=== PATIENT | female | born 1950 | race Caucasian/White ===

== ENCOUNTER 2020-05-26 13:27 | Inpatient (IN) ==
[2020-05-26 15:54] LABS: Basophils # 0.1 10*3/uL (0.0-0.2); Basophils % 0.6 % (0.0-0.8); Eosinophils # 0.7 10*3/uL (0.0-0.87); Eosinophils % 5.4 % (0.00-10.9); Hematocrit 33.2 VOL% (35.7-47.0); Hemoglobin 10.8 GM/DL (12.0-16.0); Immature Granulocytes Absolute 0.13 #; Lymphocytes % 22.2 % (21.3-54.2); Mean Corpuscular HGB Conc 32.5 GM/DL (32-36); Mean Corpuscular Volume 91.2 FL (87-102); Mean Platelet Volume 10.8 FL (9.6-12.0); Monocytes % 5.2 % (1.7-12.7); Neutrophils % 65.6 % (38.7-73.9); Platelet Count 225 T/CUMM (130-400); Red Blood Count 3.64 MC/CUMM (3.8-5.5); Red Cell Distribution Width 12.6 % (9.3-17.3); White Blood Count 13.4 T/CUMM (4-12)
[2020-05-26 16:14] LABS: Alanine Aminotransferase 19 U/L (13-56); Albumin 3.1 G/DL (3.4-5.0); Alkaline Phosphatase 98 U/L (45-117); Aspartate Amino Transferase 13 U/L (0-37); Bilirubin,Total < 0.39 MG/DL (0.2-1.0); Blood Urea Nitrogen 48 MG/DL (7-18); Calcium 8.7 MG/DL (8.5-10.1); Estimated Glom Filtration Rate 25 ML/MIN; Glucose 405 MG/DL (74-106); Osmolality,Calculated 291.7 MOS/KG (273-304)
[2020-05-26] MEDS ORDERED: SODIUM BICARBONATE 50 MEQ/50 ML VIAL IV STA (16:27)
[2020-05-26] MEDS ORDERED: CALCIUM CHLORIDE 1,000 MG/10 ML SYRINGE IV STA (16:27)
[2020-05-26] MEDS ORDERED: INSULIN REGULAR 100 UNIT/ML SUBCUT STA (16:27)
[2020-05-26] MEDS ORDERED: DEXTROSE 50% 25 GM/50 ML VIAL IV STA (16:28)
[2020-05-26] MEDS ORDERED: DEXTROSE 50% 25 GM/50 ML VIAL IV PRN (16:57)
[2020-05-26] MEDS ORDERED: DEXTROSE 10% 250 ML BAG IV PRN (16:57)
[2020-05-26] MEDS ORDERED: SODIUM POLYSTYRENE SULFATE 15 GM/60 ML BOTTLE PO STA (16:57)
[2020-05-26] MEDS ORDERED: GLUCAGON 1 MG VIAL IM PRN (16:57)
[2020-05-26] MEDS ORDERED: ONDANSETRON 4 MG/2 ML VIAL IV PRN (16:57)
[2020-05-26] MEDS ORDERED: DEXTROSE 50% 25 GM/50 ML SYRINGE IV ONE (17:07)
[2020-05-26] MEDS ORDERED: traMADol 50 MG TABLET PO PRN (18:21)
[2020-05-26] MEDS ORDERED: PANTOPRAZOLE 40 MG TABLET PO PRN (18:21)
[2020-05-26] MEDS ORDERED: CYCLOBENZAPRINE 10 MG TABLET PO PRN (18:21)
[2020-05-26] MEDS ORDERED: INSULIN ASPART PROTAMINE/ASPART 70/30 100 UNIT/ML SUBCUT SCH (21:00)
[2020-05-26 22:03] LABS: Calcium 10.3 MG/DL (8.5-10.1); Osmolality,Calculated 292.1 MOS/KG (273-304)
[2020-05-26] MEDS: SODIUM BICARB INJ 50 MEQ in SODIUM CHLORIDE 0.45% 1,000 ML IV SCH (22:35)
[2020-05-26] MEDS: ENOXAPARIN 30 MG/0.3 ML SYRINGE SUBCUT SCH (22:37)
[2020-05-26] MEDS: DULoxetine 30 MG CAPSULE PO SCH (22:37)
[2020-05-26] MEDS: PREGABALIN 75 MG CAPSULE PO SCH (22:38)
[2020-05-26] MEDS: ASPIRIN EC 81 MG TABLET PO SCH (22:38)
[2020-05-26] MEDS: ROSUVASTATIN 10 MG TABLET PO SCH (22:38)
[2020-05-26] MEDS: INSULIN REGULAR 100 UNIT/ML SUBCUT SCH (22:38)
[2020-05-27 06:18] LABS: Basophils # 0.1 10*3/uL (0.0-0.2); Basophils % 0.6 % (0.0-0.8); Eosinophils # 0.7 10*3/uL (0.0-0.87); Eosinophils % 6.5 % (0.00-10.9); Hematocrit 32.1 VOL% (35.7-47.0); Hemoglobin 10.2 GM/DL (12.0-16.0); Immature Granulocytes % 1.2 %; Immature Granulocytes Absolute 0.13 #; Lymphocytes # 3.9 10*3/uL (1.4-4.0); Lymphocytes % 36.4 % (21.3-54.2); Mean Corpuscular HGB Conc 31.8 GM/DL (32-36); Mean Corpuscular Volume 91.7 FL (87-102); Mean Platelet Volume 10.9 FL (9.6-12.0); Monocytes % 6.3 % (1.7-12.7); Platelet Count 205 T/CUMM (130-400); Red Cell Distribution Width 12.8 % (9.3-17.3); White Blood Count 10.8 T/CUMM (4-12)
[2020-05-27] MEDS: SODIUM BICARB INJ 50 MEQ in SODIUM CHLORIDE 0.45% 1,000 ML IV SCH (06:21)
[2020-05-27] MEDS: LEVOTHYROXINE 137 MCG TABLET PO SCH (06:22)
[2020-05-27 06:44] LABS: Albumin 2.8 G/DL (3.4-5.0); Bilirubin,Total 0.8 MG/DL (0.2-1.0); Calcium 9.5 MG/DL (8.5-10.1); Osmolality,Calculated 292.8 MOS/KG (273-304); Total Protein 6.3 G/DL (6.4-8.3)
[2020-05-27] MEDS: sitaGLIPtin 25 MG TABLET PO SCH (10:00)
[2020-05-27] MEDS: carvediloL 12.5 MG TABLET PO SCH (10:00)
[2020-05-27] MEDS: CLOPIDOGREL 75 MG TABLET PO SCH (10:00)
[2020-05-27] MEDS: INSULIN REGULAR 100 UNIT/ML SUBCUT SCH ×4 (10:00→22:22)
[2020-05-27] MEDS: PANTOPRAZOLE 40 MG TABLET PO SCH (10:00)
[2020-05-27] MEDS: INSULIN ASPART PROTAMINE/ASPART 70/30 100 UNIT/ML SUBCUT SCH (17:16)
[2020-05-27] MEDS: ENOXAPARIN 30 MG/0.3 ML SYRINGE SUBCUT SCH (21:01)
[2020-05-27] MEDS: ROSUVASTATIN 10 MG TABLET PO SCH (21:04)
[2020-05-27] MEDS: ASPIRIN EC 81 MG TABLET PO SCH (21:05)
[2020-05-27] MEDS: DULoxetine 30 MG CAPSULE PO SCH (21:05)
[2020-05-27] MEDS: PREGABALIN 75 MG CAPSULE PO SCH (21:05)
[2020-05-28] MEDS: LEVOTHYROXINE 137 MCG TABLET PO SCH (05:38)
[2020-05-28 06:30] LABS: Basophils % 0.5 % (0.0-0.8); Eosinophils # 0.6 10*3/uL (0.0-0.87); Eosinophils % 6.7 % (0.00-10.9); Hemoglobin 9.8 GM/DL (12.0-16.0); Immature Granulocytes % 0.9 %; Immature Granulocytes Absolute 0.08 #; Lymphocytes # 3.5 10*3/uL (1.4-4.0); Lymphocytes % 39.4 % (21.3-54.2); Mean Corpuscular HGB Conc 32.7 GM/DL (32-36); Mean Corpuscular Volume 90.1 FL (87-102); Mean Platelet Volume 10.9 FL (9.6-12.0); Monocytes % 6.1 % (1.7-12.7); Neutrophils % 46.4 % (38.7-73.9); Platelet Count 179 T/CUMM (130-400); Red Blood Count 3.33 MC/CUMM (3.8-5.5); Red Cell Distribution Width 12.8 % (9.3-17.3); White Blood Count 8.8 T/CUMM (4-12)
[2020-05-28 06:48] LABS: Calcium 8.9 MG/DL (8.5-10.1); Osmolality,Calculated 291.1 MOS/KG (273-304)
[2020-05-28] MEDS: INSULIN ASPART PROTAMINE/ASPART 70/30 100 UNIT/ML SUBCUT SCH ×2 (08:32→16:21)
[2020-05-28] MEDS: carvediloL 12.5 MG TABLET PO SCH (08:32)
[2020-05-28] MEDS: PANTOPRAZOLE 40 MG TABLET PO SCH (08:32)
[2020-05-28] MEDS: CLOPIDOGREL 75 MG TABLET PO SCH (08:32)
[2020-05-28] MEDS: sitaGLIPtin 25 MG TABLET PO SCH (08:32)
[2020-05-28] MEDS: INSULIN REGULAR 100 UNIT/ML SUBCUT SCH ×3 (08:32→16:21)
[2020-05-28 12:23] VITALS: BP 124/48
== END 2020-05-28 16:38 | disposition home or self-care (01) | DRG 641 ==
LOC: N.ED 13:27 → N.EDINP 13:27 → N.3W 18:37 → N.3E 05-27 17:14
PROVIDERS: ADMIT Internal Medicine; ATTEND Internal Medicine

== ENCOUNTER 2020-06-14 08:27 | Observation (INO) ==
[2020-06-14] MEDS ORDERED: PHENAZOPYRIDINE 95 MG TABLET PO STA (09:15)
[2020-06-14] MEDS ORDERED: SODIUM CHLORIDE 0.9% 500 ML IV STA (09:15)
[2020-06-14 10:01] LABS: Basophils # 0.1 10*3/uL (0.0-0.2); Basophils % 0.4 % (0.0-0.8); Eosinophils # 0.5 10*3/uL (0.0-0.87); Eosinophils % 2.7 % (0.00-10.9); Hematocrit 34.3 VOL% (35.7-47.0); Hemoglobin 11.1 GM/DL (12.0-16.0); Immature Granulocytes % 2.9 %; Immature Granulocytes Absolute 0.49 #; Lymphocytes # 1.3 10*3/uL (1.4-4.0); Lymphocytes % 7.7 % (21.3-54.2); Mean Corpuscular HGB Conc 32.4 GM/DL (32-36); Mean Corpuscular Volume 91.7 FL (87-102); Mean Platelet Volume 10.7 FL (9.6-12.0); Monocytes % 4.1 % (1.7-12.7); NRBC # 0.02 10*3/uL; Neutrophils % 82.2 % (38.7-73.9); Platelet Count 214 T/CUMM (130-400); Red Blood Count 3.74 MC/CUMM (3.8-5.5); Red Cell Distribution Width 13.1 % (9.3-17.3)
[2020-06-14 10:25] LABS: Alanine Aminotransferase 18 U/L (13-56); Albumin 2.8 G/DL (3.4-5.0); Alkaline Phosphatase 98 U/L (45-117); Amylase 37 U/L (25-115); Aspartate Amino Transferase 24 U/L (0-37); Blood Urea Nitrogen 20 MG/DL (7-18); Calcium 7.9 MG/DL (8.5-10.1); Estimated Glom Filtration Rate 47 ML/MIN; Ferritin 120.4 ng/ml (8-252); Glucose 349 MG/DL (74-106); Osmolality,Calculated 280.5 MOS/KG (273-304); Total Protein 6.9 G/DL (6.4-8.3); Troponin I 0.055 NG/ML (0.00-0.045)
[2020-06-14 10:37] LABS: Apearance,Urine CLEAR (Clear); Bacteria,Urine Occasional /HPF (Few); Bilirubin,Urine Negative (Negative); Blood, Urine Moderate mg/dL (Negative); Glucose,Urine (UA) >=500 mg/dL (Negative); Ketones,Urine 80 mg/dL (Negative); Nitrite,Urine Negative (Negative); Protein,Urine 100 MG/DL; RBC,Urine <1 /HPF (0-4); Squamous Epithelial Cell,Urine Occasional /HPF (0-10); Urine Color Yellow (Yellow); Urine Specific Gravity 1.022 (1.001-1.035); Urine Urobilinogen < 2.0 EU/DL (0.2-1.0); WBC,Urine 1 /HPF (0-6)
[2020-06-14] MEDS ORDERED: LEVOFLOXACIN INJ 750 MG in PREMIX 1 EACH IV STA (10:50)
[2020-06-14 11:24] LABS: PT Patient Result 10.3 SECS (9.8-11.9); Partial Thromboplastin Time 25.1 SECS (23.9-33.8)
[2020-06-14] MEDS ORDERED: GLUCAGON 1 MG VIAL IM PRN (11:28)
[2020-06-14] MEDS ORDERED: ONDANSETRON 4 MG/2 ML VIAL IV PRN (11:28)
[2020-06-14] MEDS ORDERED: DEXTROSE 50% 25 GM/50 ML VIAL IV PRN (11:28)
[2020-06-14] MEDS ORDERED: BISACODYL 5 MG TABLET PO PRN (11:28)
[2020-06-14] MEDS ORDERED: amLODIPine 5 MG TABLET PO STA (11:32)
[2020-06-14] MEDS: INSULIN REGULAR 100 UNIT/ML SUBCUT SCH ×4 (14:12→21:51)
[2020-06-14] MEDS: SODIUM CHLORIDE 0.9% 1,000 ML IV SCH (15:32)
[2020-06-14] MEDS: cefTRIAXone 1,000 MG in SYRINGE 1 EACH IV SCH (15:32)
[2020-06-14] MEDS ORDERED: PREGABALIN 75 MG CAPSULE PO SCH (21:00)
[2020-06-14] MEDS ORDERED: ENOXAPARIN 40 MG/0.4 ML SYRINGE SUBCUT SCH (21:00)
[2020-06-14] MEDS ORDERED: ASPIRIN EC 81 MG TABLET PO SCH (21:00)
[2020-06-14] MEDS ORDERED: ZALEPLON 5 MG CAPSULE PO PRN (23:05)
[2020-06-15] MEDS: SODIUM CHLORIDE 0.9% 1,000 ML IV SCH ×2 (02:16→09:47)
[2020-06-15] MEDS ORDERED: LEVOTHYROXINE 137 MCG TABLET PO SCH (06:30)
[2020-06-15 06:31] LABS: Basophils # 0.1 10*3/uL (0.0-0.2); Basophils % 0.4 % (0.0-0.8); Eosinophils # 0.6 10*3/uL (0.0-0.87); Eosinophils % 3.1 % (0.00-10.9); Hematocrit 32.2 VOL% (35.7-47.0); Hemoglobin 10.5 GM/DL (12.0-16.0); Immature Granulocytes % 1.9 %; Immature Granulocytes Absolute 0.35 #; Lymphocytes % 11.2 % (21.3-54.2); Mean Corpuscular HGB Conc 32.6 GM/DL (32-36); Mean Corpuscular Volume 90.2 FL (87-102); Mean Platelet Volume 11.3 FL (9.6-12.0); Monocytes % 3.4 % (1.7-12.7); Platelet Count 186 T/CUMM (130-400); Red Blood Count 3.57 MC/CUMM (3.8-5.5); Red Cell Distribution Width 12.9 % (9.3-17.3); White Blood Count 18.1 T/CUMM (4-12)
[2020-06-15 06:35] LABS: Calcium 7.4 MG/DL (8.5-10.1); Osmolality,Calculated 278.4 MOS/KG (273-304); Thyroid Stimulating Hormone 0.029 uIU/ml (0.358-3.74)
[2020-06-15 06:39] LABS: Folate 21.5 NG/ML (5.4-24.0)
[2020-06-15] MEDS: INSULIN REGULAR 100 UNIT/ML SUBCUT SCH (07:27)
[2020-06-15 08:40] VITALS: BP 156/66
[2020-06-15] MEDS ORDERED: amLODIPine 5 MG TABLET PO SCH (09:00)
[2020-06-15] MEDS ORDERED: CLOPIDOGREL 75 MG TABLET PO SCH (09:00)
[2020-06-15] MEDS ORDERED: predniSONE 5 MG TABLET PO SCH (09:00)
[2020-06-15] MEDS ORDERED: carvediloL 12.5 MG TABLET PO SCH (09:00)
[2020-06-15] MEDS: cefTRIAXone 1,000 MG in SYRINGE 1 EACH IV SCH (09:41)
== END 2020-06-15 10:20 | disposition home or self-care (01) ==
LOC: EDBD → EDUNIT# → N.ED 08:27 → N.EDINP 08:27 → N.TELEN 13:32
PROVIDERS: ADMIT Internal Medicine; ATTEND Internal Medicine

== ENCOUNTER 2020-06-16 12:37 | Observation (INO) ==
[2020-06-16] MEDS ORDERED: SODIUM CHLORIDE 0.9% 2,000 ML IV STA (12:50)
[2020-06-16] MEDS ORDERED: LEVOFLOXACIN INJ 500 MG in PREMIX 1 EACH IV STA (12:52)
[2020-06-16 13:33] LABS: Basophils # 0.1 10*3/uL (0.0-0.2); Basophils % 0.2 % (0.0-0.8); Eosinophils # 0.5 10*3/uL (0.0-0.87); Eosinophils % 2.3 % (0.00-10.9); Hematocrit 31.8 VOL% (35.7-47.0); Hemoglobin 10.6 GM/DL (12.0-16.0); Immature Granulocytes % 3.5 %; Immature Granulocytes Absolute 0.79 #; Lymphocytes # 0.3 10*3/uL (1.4-4.0); Lymphocytes % 1.4 % (21.3-54.2); Mean Corpuscular HGB Conc 33.3 GM/DL (32-36); Mean Corpuscular Volume 88.8 FL (87-102); Mean Platelet Volume 10.8 FL (9.6-12.0); Monocytes % 0.8 % (1.7-12.7); Neutrophils % 91.8 % (38.7-73.9); Platelet Count 200 T/CUMM (130-400); Red Blood Count 3.58 MC/CUMM (3.8-5.5); Red Cell Distribution Width 12.9 % (9.3-17.3); White Blood Count 22.4 T/CUMM (4-12)
[2020-06-16 13:46] LABS: PT Patient Result 10.3 SECS (9.8-11.9)
[2020-06-16 14:03] LABS: Alanine Aminotransferase 27 U/L (13-56); Albumin 2.5 G/DL (3.4-5.0); Alkaline Phosphatase 99 U/L (45-117); Aspartate Amino Transferase 29 U/L (0-37); Bilirubin,Total < 0.39 MG/DL (0.2-1.0); Blood Urea Nitrogen 20 MG/DL (7-18); Calcium 7.5 MG/DL (8.5-10.1); Estimated Glom Filtration Rate 48 ML/MIN; Glucose 243 MG/DL (74-106); Osmolality,Calculated 270.8 MOS/KG (273-304); Total Protein 6.7 G/DL (6.4-8.3)
[2020-06-16 14:34] LABS: Apearance,Urine CLOUDY (Clear); Bilirubin,Urine Negative (Negative); Blood, Urine Negative (Negative); Glucose,Urine (UA) 50 mg/dL (Negative); Ketones,Urine 5 mg/dL (Negative); Nitrite,Urine Negative (Negative); Protein,Urine 100 MG/DL; RBC,Urine 4 /HPF (0-4); Red Blood Cell Casts,Urine 42 /LPF (<1); Squamous Epithelial Cell,Urine Occasional /HPF (0-10); Urine Color Amber (Yellow); Urine Specific Gravity 1.026 (1.001-1.035); Urine Urobilinogen < 2.0 EU/DL (0.2-1.0); WBC,Urine 25 /HPF (0-6)
[2020-06-16] MEDS ORDERED: GLUCAGON 1 MG VIAL IM PRN ×2 (14:57)
[2020-06-16] MEDS ORDERED: ONDANSETRON 4 MG/2 ML VIAL IV PRN (14:57)
[2020-06-16] MEDS ORDERED: DEXTROSE 50% 25 GM/50 ML VIAL IV PRN ×2 (14:57)
[2020-06-16] MEDS ORDERED: ACETAMINOPHEN 325 MG TABLET PO PRN (14:57)
[2020-06-16 15:43] LABS: Band Neutrophils 4 % (0-10); Eosinophils 2 % (0-10); Lymphocytes 1 % (20-55); Segmented Neutrophils 89 % (50-85); Total Cells Counted 100
[2020-06-16 15:44] LABS: Anisocytosis Slight; Platelet Estimate Adequate; Polychromasia Slight
[2020-06-16] MEDS: ENOXAPARIN 40 MG/0.4 ML SYRINGE SUBCUT SCH (21:49)
[2020-06-16] MEDS: INSULIN LISPRO 100 UNIT/ML SUBCUT SCH (21:59)
[2020-06-17] MEDS: ZALEPLON 5 MG CAPSULE PO PRN ×2 (01:02→23:41)
[2020-06-17] MEDS: SODIUM CHLORIDE 0.9% 1,000 ML IV SCH (05:51)
[2020-06-17 05:56] LABS: Basophils # 0.1 10*3/uL (0.0-0.2); Basophils % 0.4 % (0.0-0.8); Eosinophils # 0.3 10*3/uL (0.0-0.87); Eosinophils % 2.4 % (0.00-10.9); Hematocrit 29.4 VOL% (35.7-47.0); Hemoglobin 9.9 GM/DL (12.0-16.0); Immature Granulocytes Absolute 0.25 #; Lymphocytes # 0.9 10*3/uL (1.4-4.0); Lymphocytes % 7.1 % (21.3-54.2); Mean Corpuscular HGB Conc 33.7 GM/DL (32-36); Mean Platelet Volume 11.2 FL (9.6-12.0); Monocytes % 2.6 % (1.7-12.7); Neutrophils % 85.5 % (38.7-73.9); Platelet Count 187 T/CUMM (130-400); Red Blood Count 3.38 MC/CUMM (3.8-5.5); Red Cell Distribution Width 13.1 % (9.3-17.3); White Blood Count 12.8 T/CUMM (4-12)
[2020-06-17 06:23] LABS: Band Neutrophils 12 % (0-10); Eosinophils 3 % (0-10); Lymphocytes 6 % (20-55); Segmented Neutrophils 79 % (50-85); Total Cells Counted 100
[2020-06-17 06:24] LABS: Calcium 6.8 MG/DL (8.5-10.1); Hypochromasia 1+; Microcytosis Slight; Osmolality,Calculated 278.2 MOS/KG (273-304)
[2020-06-17 06:25] LABS: Platelet Estimate Adequate; Polychromasia Slight
[2020-06-17] MEDS: INSULIN LISPRO 100 UNIT/ML SUBCUT SCH ×4 (08:03→20:42)
[2020-06-17] MEDS: PANTOPRAZOLE 40 MG TABLET PO SCH (08:03)
[2020-06-17] MEDS: LEVOFLOXACIN INJ 500 MG in PREMIX 1 EACH IV SCH (10:46)
[2020-06-17] MEDS ORDERED: SALIVA SUBSTITUTE SPRAY 60 ML CAN SWISH/SPIT PRN (11:52)
[2020-06-17] MEDS: ENOXAPARIN 40 MG/0.4 ML SYRINGE SUBCUT SCH (20:42)
[2020-06-18 06:14] LABS: Basophils % 0.3 % (0.0-0.8); Eosinophils # 0.7 10*3/uL (0.0-0.87); Eosinophils % 7.5 % (0.00-10.9); Hematocrit 26.1 VOL% (35.7-47.0); Hemoglobin 8.4 GM/DL (12.0-16.0); Immature Granulocytes % 2.5 %; Immature Granulocytes Absolute 0.24 #; Lymphocytes # 1.7 10*3/uL (1.4-4.0); Lymphocytes % 17.9 % (21.3-54.2); Mean Corpuscular HGB Conc 32.2 GM/DL (32-36); Mean Corpuscular Volume 89.1 FL (87-102); Mean Platelet Volume 11.2 FL (9.6-12.0); Monocytes % 2.8 % (1.7-12.7); Platelet Count 192 T/CUMM (130-400); Red Blood Count 2.93 MC/CUMM (3.8-5.5); Red Cell Distribution Width 13.2 % (9.3-17.3); White Blood Count 9.6 T/CUMM (4-12)
[2020-06-18 06:46] LABS: Calcium 7.2 MG/DL (8.5-10.1); Osmolality,Calculated 285.8 MOS/KG (273-304)
[2020-06-18] MEDS: PANTOPRAZOLE 40 MG TABLET PO SCH (09:23)
[2020-06-18] MEDS: SODIUM CHLORIDE 0.9% 1,000 ML IV SCH (09:24)
[2020-06-18] MEDS: LEVOFLOXACIN INJ 500 MG in PREMIX 1 EACH IV SCH (09:24)
[2020-06-18] MEDS: INSULIN LISPRO 100 UNIT/ML SUBCUT SCH ×4 (09:24→21:08)
[2020-06-19 05:16] LABS: Hematocrit 26.6 VOL% (35.7-47.0); Hemoglobin 8.8 GM/DL (12.0-16.0); Red Blood Count 3.05 MC/CUMM (3.8-5.5); White Blood Count 10.8 T/CUMM (4-12)
[2020-06-19 05:17] LABS: Basophils # 0.1 10*3/uL (0.0-0.2); Basophils % 0.7 % (0.0-0.8); Eosinophils # 0.9 10*3/uL (0.0-0.87); Eosinophils % 8.1 % (0.00-10.9); Immature Granulocytes % 3.5 %; Immature Granulocytes Absolute 0.38 #; Lymphocytes # 2.2 10*3/uL (1.4-4.0); Lymphocytes % 20.2 % (21.3-54.2); Mean Corpuscular HGB Conc 33.1 GM/DL (32-36); Mean Corpuscular Volume 87.2 FL (87-102); Monocytes % 3.4 % (1.7-12.7); NRBC # 0.02 10*3/uL; Neutrophils % 64.1 % (38.7-73.9); Platelet Count 196 T/CUMM (130-400); Red Cell Distribution Width 13.4 % (9.3-17.3)
[2020-06-19 05:19] LABS: Calcium 7.5 MG/DL (8.5-10.1); Osmolality,Calculated 285.5 MOS/KG (273-304)
[2020-06-19 08:09] LABS: % Iron Saturation 17.9 % (18-50)
[2020-06-19] MEDS: LEVOFLOXACIN INJ 500 MG in PREMIX 1 EACH IV SCH (10:20)
[2020-06-19] MEDS: INSULIN LISPRO 100 UNIT/ML SUBCUT SCH ×2 (10:20→12:20)
[2020-06-19] MEDS: PANTOPRAZOLE 40 MG TABLET PO SCH (10:21)
[2020-06-19 10:44] VITALS: BP 144/48
== END 2020-06-19 13:45 | disposition home or self-care (01) ==
LOC: EDBD → EDUNIT# → N.ED 12:37 → N.EDINP 12:37 → N.3E 15:56
PROVIDERS: ADMIT Internal Medicine Geriatric Medicine; ATTEND Internal Medicine Geriatric Medicine

== ENCOUNTER 2020-06-20 07:18 | Inpatient (IN) ==
[2020-06-20] MEDS ORDERED: FUROSEMIDE 40 MG/4 ML VIAL IV STA (07:55)
[2020-06-20 08:02] LABS: Basophils # 0.2 10*3/uL (0.0-0.2); Basophils % 0.5 % (0.0-0.8); Eosinophils # 0.8 10*3/uL (0.0-0.87); Eosinophils % 2.3 % (0.00-10.9); Hematocrit 32.9 VOL% (35.7-47.0); Hemoglobin 10.7 GM/DL (12.0-16.0); Immature Granulocytes % 3.8 %; Immature Granulocytes Absolute 1.25 #; Lymphocytes # 0.7 10*3/uL (1.4-4.0); Mean Corpuscular HGB Conc 32.5 GM/DL (32-36); Mean Corpuscular Volume 89.2 FL (87-102); Mean Platelet Volume 10.7 FL (9.6-12.0); Monocytes % 2.4 % (1.7-12.7); Platelet Count 254 T/CUMM (130-400); Red Blood Count 3.69 MC/CUMM (3.8-5.5); Red Cell Distribution Width 13.6 % (9.3-17.3); White Blood Count 33.3 T/CUMM (4-12)
[2020-06-20 08:19] LABS: Albumin 2.3 G/DL (3.4-5.0); Bilirubin,Total 0.4 MG/DL (0.2-1.0); Calcium 7.8 MG/DL (8.5-10.1); Osmolality,Calculated 278.2 MOS/KG (273-304); Total Protein 5.5 G/DL (6.4-8.3)
[2020-06-20 08:41] LABS: Band Neutrophils 37 % (0-10); Eosinophils 3 % (0-10); Lymphocytes 3 % (20-55); Metamyelocytes 3 %; Nucleated Red Blood Cells 1 (0-5); Platelet Estimate Normal; Segmented Neutrophils 48 % (50-85); Total Cells Counted 100
[2020-06-20] MEDS ORDERED: LEVOFLOXACIN INJ 500 MG in PREMIX 1 EACH IV STA (08:41)
[2020-06-20 08:42] LABS: Anisocytosis 2+; Polychromasia Slight
[2020-06-20] MEDS ORDERED: LEVOFLOXACIN INJ 750 MG in PREMIX 1 EACH IV STA (08:43)
[2020-06-20 09:14] LABS: Apearance,Urine CLOUDY (Clear); Bilirubin,Urine Negative (Negative); Blood, Urine Small mg/dL (Negative); Glucose,Urine (UA) 50 mg/dL (Negative); Ketones,Urine Negative (Negative); Nitrite,Urine Negative (Negative); Protein,Urine 100 MG/DL; Urine Specific Gravity 1.017 (1.001-1.035); Urine Urobilinogen < 2.0 EU/DL (0.2-1.0)
[2020-06-20 09:16] LABS: Urine Color Amber (Yellow)
[2020-06-20 09:52] LABS: ABG Base Excess -5.3 MMOL/L (-2.5-2.5); ABG HCO3 17.5 MMOL/L (20-26); ABG Oxygen Saturation 97.6 % (95-100); ABG PCO2 25.7 MM HG (35-48); ABG TCO2 18.3 MMOL/L (23-27)
[2020-06-20] MEDS ORDERED: GLUCAGON 1 MG VIAL IM PRN ×2 (10:39)
[2020-06-20] MEDS ORDERED: ACETAMINOPHEN 325 MG TABLET PO PRN (10:39)
[2020-06-20] MEDS ORDERED: ONDANSETRON 4 MG/2 ML VIAL IV PRN (10:39)
[2020-06-20] MEDS ORDERED: DEXTROSE 50% 25 GM/50 ML VIAL IV PRN ×2 (10:39)
[2020-06-20] MEDS ORDERED: ENOXAPARIN 40 MG/0.4 ML SYRINGE ONE (11:09)
[2020-06-20] MEDS: INSULIN LISPRO 100 UNIT/ML SUBCUT SCH ×3 (11:27→21:28)
[2020-06-20] MEDS ORDERED: MAGNESIUM SULF RIDER 2 GM in PREMIX 1 EACH IV PRN (18:43)
[2020-06-20] MEDS ORDERED: MAGNESIUM SULF RIDER 4 GM in PREMIX 1 EACH IV PRN (18:43)
[2020-06-20] MEDS: ENOXAPARIN 40 MG/0.4 ML SYRINGE SUBCUT SCH (21:28)
[2020-06-21 06:39] LABS: Basophils # 0.1 10*3/uL (0.0-0.2); Basophils % 0.4 % (0.0-0.8); Eosinophils # 1.3 10*3/uL (0.0-0.87); Eosinophils % 5.4 % (0.00-10.9); Hematocrit 28.2 VOL% (35.7-47.0); Hemoglobin 9.3 GM/DL (12.0-16.0); Immature Granulocytes % 3.4 %; Immature Granulocytes Absolute 0.83 #; Lymphocytes # 2.7 10*3/uL (1.4-4.0); Mean Corpuscular Volume 87.9 FL (87-102); Mean Platelet Volume 10.8 FL (9.6-12.0); Monocytes % 3.4 % (1.7-12.7); NRBC # 0.02 10*3/uL; Neutrophils % 76.4 % (38.7-73.9); Platelet Count 221 T/CUMM (130-400); Red Blood Count 3.21 MC/CUMM (3.8-5.5); Red Cell Distribution Width 13.8 % (9.3-17.3); White Blood Count 24.4 T/CUMM (4-12)
[2020-06-21 07:05] LABS: Calcium 7.5 MG/DL (8.5-10.1); Osmolality,Calculated 282.4 MOS/KG (273-304); Risk Ratio 8.36; VLDL CHOLESTEROL 58.2 MG/DL
[2020-06-21 07:50] LABS: Band Neutrophils 3 % (0-10); Eosinophils 5 % (0-10); Hypochromasia Slight; Lymphocytes 5 % (20-55); Nucleated Red Blood Cells 1 (0-5); Platelet Estimate Adequate; Segmented Neutrophils 84 % (50-85); Total Cells Counted 100
[2020-06-21] MEDS: INSULIN LISPRO 100 UNIT/ML SUBCUT SCH ×4 (08:17→23:43)
[2020-06-21] MEDS: PANTOPRAZOLE 40 MG TABLET PO SCH (08:18)
[2020-06-21] MEDS ORDERED: traMADol 50 MG TABLET PO PRN (11:12)
[2020-06-21] MEDS ORDERED: CYCLOBENZAPRINE 10 MG TABLET PO PRN (11:12)
[2020-06-21] MEDS ORDERED: SALIVA SUBSTITUTE SPRAY 60 ML CAN SWISH/SPIT PRN (11:12)
[2020-06-21] MEDS ORDERED: DENOSUMAB 60 MG/ML SYRINGE SUBCUT SCH (11:30)
[2020-06-21] MEDS ORDERED: ZALEPLON 5 MG CAPSULE PO PRN (15:09)
[2020-06-21] MEDS ORDERED: YEAST PO SCH (21:00)
[2020-06-21] MEDS: ASPIRIN EC 81 MG TABLET PO SCH (22:06)
[2020-06-21] MEDS: DULoxetine 30 MG CAPSULE PO SCH (22:06)
[2020-06-21] MEDS: PREGABALIN 75 MG CAPSULE PO SCH (22:06)
[2020-06-21] MEDS: ROSUVASTATIN 10 MG TABLET PO SCH (22:07)
[2020-06-21] MEDS: ENOXAPARIN 40 MG/0.4 ML SYRINGE SUBCUT SCH (22:07)
[2020-06-22 06:52] LABS: Basophils # 0.1 10*3/uL (0.0-0.2); Basophils % 0.4 % (0.0-0.8); Eosinophils # 1.6 10*3/uL (0.0-0.87); Eosinophils % 8.7 % (0.00-10.9); Hemoglobin 8.1 GM/DL (12.0-16.0); Immature Granulocytes % 5.7 %; Immature Granulocytes Absolute 1.04 #; Lymphocytes # 3.8 10*3/uL (1.4-4.0); Lymphocytes % 20.8 % (21.3-54.2); Mean Corpuscular HGB Conc 32.4 GM/DL (32-36); Mean Corpuscular Volume 89.9 FL (87-102); Mean Platelet Volume 10.6 FL (9.6-12.0); Monocytes % 4.1 % (1.7-12.7); NRBC # 0.02 10*3/uL; Neutrophils % 60.3 % (38.7-73.9); Platelet Count 252 T/CUMM (130-400); Red Blood Count 2.78 MC/CUMM (3.8-5.5); Red Cell Distribution Width 13.9 % (9.3-17.3); White Blood Count 18.4 T/CUMM (4-12)
[2020-06-22 07:26] LABS: Band Neutrophils 1 % (0-10); Eosinophils 12 % (0-10); Hypochromasia 1+; Lymphocytes 19 % (20-55); Platelet Estimate Adequate; Segmented Neutrophils 64 % (50-85); Total Cells Counted 100
[2020-06-22 07:27] LABS: Calcium 7.4 MG/DL (8.5-10.1); Osmolality,Calculated 284.2 MOS/KG (273-304)
[2020-06-22] MEDS ORDERED: SEA KELP PO SCH (09:00)
[2020-06-22] MEDS ORDERED: [UNRECOGNIZED DRUG - OTHER] PO SCH (09:00)
[2020-06-22] MEDS ORDERED: CALCIUM CARB MAG OXIDE ZINC OX PO SCH (09:00)
[2020-06-22] MEDS ORDERED: FORSKOLIN PO SCH (09:00)
[2020-06-22] MEDS ORDERED: LEVOFLOXACIN INJ 750 MG in PREMIX 1 EACH IV SCH (09:00)
[2020-06-22] MEDS ORDERED: [UNRECOGNIZED DRUG - MIXTURE] PO SCH (09:00)
[2020-06-22] MEDS ORDERED: ESTROGEN BALANCE PO SCH (09:00)
[2020-06-22] MEDS: INSULIN LISPRO 100 UNIT/ML SUBCUT SCH ×4 (09:11→20:52)
[2020-06-22] MEDS: amLODIPine 5 MG TABLET PO SCH (09:12)
[2020-06-22] MEDS: CLOPIDOGREL 75 MG TABLET PO SCH (09:12)
[2020-06-22] MEDS: predniSONE 5 MG TABLET PO SCH (09:12)
[2020-06-22] MEDS: carvediloL 12.5 MG TABLET PO SCH (09:12)
[2020-06-22] MEDS: PANTOPRAZOLE 40 MG TABLET PO SCH (09:12)
[2020-06-22] MEDS: PREGABALIN 75 MG CAPSULE PO SCH (20:51)
[2020-06-22] MEDS: ROSUVASTATIN 10 MG TABLET PO SCH (20:51)
[2020-06-22] MEDS: ASPIRIN EC 81 MG TABLET PO SCH (20:52)
[2020-06-22] MEDS: DULoxetine 30 MG CAPSULE PO SCH (20:52)
[2020-06-22] MEDS: ENOXAPARIN 40 MG/0.4 ML SYRINGE SUBCUT SCH (20:53)
[2020-06-23 06:28] LABS: Basophils # 0.1 10*3/uL (0.0-0.2); Basophils % 0.7 % (0.0-0.8); Eosinophils # 0.9 10*3/uL (0.0-0.87); Eosinophils % 6.7 % (0.00-10.9); Immature Granulocytes % 8.9 %; Immature Granulocytes Absolute 1.15 #; Lymphocytes # 3.1 10*3/uL (1.4-4.0); Lymphocytes % 24.1 % (21.3-54.2); Mean Corpuscular Volume 88.7 FL (87-102); Mean Platelet Volume 10.8 FL (9.6-12.0); Monocytes % 3.6 % (1.7-12.7); NRBC # 0.03 10*3/uL; Platelet Count 254 T/CUMM (130-400); Red Blood Count 2.82 MC/CUMM (3.8-5.5); Red Cell Distribution Width 13.7 % (9.3-17.3)
[2020-06-23 06:37] LABS: Calcium 7.5 MG/DL (8.5-10.1); Osmolality,Calculated 279.5 MOS/KG (273-304)
[2020-06-23 06:38] LABS: Ferritin 137.7 ng/ml (8-252)
[2020-06-23] MEDS: INSULIN LISPRO 100 UNIT/ML SUBCUT SCH ×2 (08:24→12:02)
[2020-06-23] MEDS: amLODIPine 5 MG TABLET PO SCH (08:24)
[2020-06-23] MEDS: PANTOPRAZOLE 40 MG TABLET PO SCH (08:25)
[2020-06-23] MEDS: predniSONE 5 MG TABLET PO SCH (08:25)
[2020-06-23] MEDS: CLOPIDOGREL 75 MG TABLET PO SCH (08:25)
[2020-06-23] MEDS: carvediloL 12.5 MG TABLET PO SCH (08:25)
[2020-06-23 09:18] LABS: Band Neutrophils 3 % (0-10); Eosinophils 9 % (0-10); Lymphocytes 30 % (20-55); Metamyelocytes 3 %; Myelocytes 3 %; Segmented Neutrophils 49 % (50-85); Total Cells Counted 100
[2020-06-23 09:19] LABS: Hypochromasia 1+; Microcytosis 1+
[2020-06-23 09:20] LABS: Platelet Estimate Normal
[2020-06-23] MEDS ORDERED: PHENOL 1.4% THROAT SPRAY 177 ML BOTTLE PO PRN (11:26)
[2020-06-23 11:53] VITALS: BP 125/68
== END 2020-06-23 16:05 | disposition home health service (06) | DRG 194 ==
LOC: N.ED 07:18 → N.EDINP 10:39 → N.3E 13:45 → N.2E 16:13
PROVIDERS: ADMIT Internal Medicine; ATTEND Internal Medicine

== ENCOUNTER 2020-07-25 16:13 | Inpatient (IN) ==
[2020-07-25] MEDS ORDERED: SODIUM CHLORIDE 0.9% 1,000 ML IV STA ×2 (16:45→18:43)
[2020-07-25 17:20] LABS: Basophils # 0.1 10*3/uL (0.0-0.2); Basophils % 0.3 % (0.0-0.8); Eosinophils # 0.2 10*3/uL (0.0-0.87); Eosinophils % 0.6 % (0.00-10.9); Hematocrit 35.7 VOL% (35.7-47.0); Hemoglobin 11.6 GM/DL (12.0-16.0); Immature Granulocytes % 2.8 %; Immature Granulocytes Absolute 1.11 #; Lymphocytes # 0.7 10*3/uL (1.4-4.0); Lymphocytes % 1.8 % (21.3-54.2); Mean Corpuscular HGB Conc 32.5 GM/DL (32-36); Mean Corpuscular Volume 87.3 FL (87-102); Mean Platelet Volume 10.6 FL (9.6-12.0); Monocytes % 1.6 % (1.7-12.7); Neutrophils % 92.9 % (38.7-73.9); Platelet Count 328 T/CUMM (130-400); Red Blood Count 4.09 MC/CUMM (3.8-5.5); Red Cell Distribution Width 13.1 % (9.3-17.3)
[2020-07-25 17:30] LABS: PT Patient Result 10.5 SECS (9.8-11.9)
[2020-07-25 17:35] LABS: Alanine Aminotransferase 14 U/L (13-56); Albumin 2.8 G/DL (3.4-5.0); Alkaline Phosphatase 119 U/L (45-117); Aspartate Amino Transferase 13 U/L (0-37); Bilirubin,Total < 0.39 MG/DL (0.2-1.0); Blood Urea Nitrogen 23 MG/DL (7-18); Calcium 9.5 MG/DL (8.5-10.1); Estimated Glom Filtration Rate 32 ML/MIN; Glucose 98 MG/DL (74-106); Osmolality,Calculated 276.8 MOS/KG (273-304); Total Protein 7.2 G/DL (6.4-8.3)
[2020-07-25 17:40] LABS: Troponin I 0.055 NG/ML (0.00-0.045)
[2020-07-25 17:42] LABS: Amorphous Crystals,Urine Occasional /HPF (Few); Apearance,Urine Slightly Hazy (Clear); Bacteria,Urine Many /HPF (Few); Bilirubin,Urine Negative (Negative); Blood, Urine Negative (Negative); Glucose,Urine (UA) 50 mg/dL (Negative); Ketones,Urine Negative (Negative); Mucus,Urine Occasional /LPF (Occasional); Nitrite,Urine Negative (Negative); Protein,Urine 30 MG/DL; RBC,Urine 3 /HPF (0-4); Squamous Epithelial Cell,Urine Occasional /HPF (0-10); Urine Color Yellow (Yellow); Urine Specific Gravity 1.013 (1.001-1.035); Urine Urobilinogen < 2.0 EU/DL (0.2-1.0); WBC,Urine 17 /HPF (0-6)
[2020-07-25 18:03] LABS: Band Neutrophils 4 % (0-10); Hypochromasia 1+; Lymphocytes 1 % (20-55); Microcytosis Slight; Myelocytes 1 %; Segmented Neutrophils 91 % (50-85); Total Cells Counted 100
[2020-07-25 18:04] LABS: Toxic Granulation 1+
[2020-07-25 18:05] LABS: Platelet Estimate Normal
[2020-07-25] MEDS ORDERED: VANCOMYCIN INJ 1,000 MG in SODIUM CHLORIDE 0.9% 250 ML IV STA (18:25)
[2020-07-25] MEDS ORDERED: LEVOFLOXACIN INJ 750 MG in PREMIX 1 EACH IV STA (18:25)
[2020-07-25] MEDS ORDERED: ONDANSETRON 4 MG/2 ML VIAL IV PRN (20:18)
[2020-07-25] MEDS ORDERED: DEXTROSE 50% 25 GM/50 ML VIAL IV PRN (20:18)
[2020-07-25] MEDS ORDERED: GLUCAGON 1 MG VIAL IM PRN (20:18)
[2020-07-25] MEDS ORDERED: SALIVA SUBSTITUTE SPRAY 60 ML CAN SWISH/SPIT PRN (20:24)
[2020-07-25] MEDS ORDERED: CYCLOBENZAPRINE 10 MG TABLET PO PRN (20:24)
[2020-07-25] MEDS ORDERED: NON-FORMULARY MEDICATION (Albuterol Sulfate 2 PUFF) INH PRN (20:24)
[2020-07-25] MEDS: INSULIN REGULAR 100 UNIT/ML SUBCUT SCH (21:16)
[2020-07-25] MEDS: ENOXAPARIN 30 MG/0.3 ML SYRINGE SUBCUT SCH (21:48)
[2020-07-25] MEDS: DULoxetine 30 MG CAPSULE PO SCH (22:50)
[2020-07-25] MEDS: SODIUM CHLORIDE 0.9% 1,000 ML IV SCH (22:50)
[2020-07-25] MEDS: ASPIRIN EC 81 MG TABLET PO SCH (22:50)
[2020-07-25] MEDS: ASCORBIC ACID 500 MG TABLET PO SCH (23:00)
[2020-07-25] MEDS: PREGABALIN 75 MG CAPSULE PO SCH (23:00)
[2020-07-25] MEDS: traMADol 50 MG TABLET PO PRN (23:00)
[2020-07-25] MEDS: ROSUVASTATIN 10 MG TABLET PO SCH (23:00)
[2020-07-25] MEDS: MEROPENEM 500 MG in SODIUM CHLORIDE 0.9% 100 ML IV SCH (23:07)
[2020-07-26] MEDS: MEROPENEM 500 MG in SODIUM CHLORIDE 0.9% 100 ML IV SCH ×3 (05:05→20:42)
[2020-07-26] MEDS: LEVOTHYROXINE 137 MCG TABLET PO SCH (05:05)
[2020-07-26] MEDS ORDERED: ACETAMINOPHEN 325 MG TABLET PO PRN (05:09)
[2020-07-26 05:59] LABS: Basophils # 0.1 10*3/uL (0.0-0.2); Basophils % 0.2 % (0.0-0.8); Eosinophils # 0.4 10*3/uL (0.0-0.87); Eosinophils % 1.6 % (0.00-10.9); Hematocrit 33.3 VOL% (35.7-47.0); Hemoglobin 10.4 GM/DL (12.0-16.0); Immature Granulocytes Absolute 0.25 #; Lymphocytes # 1.3 10*3/uL (1.4-4.0); Lymphocytes % 5.4 % (21.3-54.2); Mean Corpuscular HGB Conc 31.2 GM/DL (32-36); Mean Corpuscular Volume 91.2 FL (87-102); Mean Platelet Volume 10.4 FL (9.6-12.0); Monocytes % 1.5 % (1.7-12.7); Neutrophils % 90.3 % (38.7-73.9); Platelet Count 298 T/CUMM (130-400); Red Blood Count 3.65 MC/CUMM (3.8-5.5); Red Cell Distribution Width 13.1 % (9.3-17.3); White Blood Count 24.3 T/CUMM (4-12)
[2020-07-26 06:24] LABS: Albumin 2.4 G/DL (3.4-5.0); Bilirubin,Total 0.4 MG/DL (0.2-1.0); Calcium 8.1 MG/DL (8.5-10.1); Osmolality,Calculated 280.7 MOS/KG (273-304); Total Protein 6.6 G/DL (6.4-8.3)
[2020-07-26 06:27] LABS: Eosinophils 2 % (0-10); Hypochromasia Slight; Lymphocytes 4 % (20-55); Microcytosis Slight; Platelet Estimate Adequate; Segmented Neutrophils 92 % (50-85); Total Cells Counted 100
[2020-07-26] MEDS: INSULIN REGULAR 100 UNIT/ML SUBCUT SCH ×4 (08:48→20:44)
[2020-07-26] MEDS: PANTOPRAZOLE 40 MG TABLET PO SCH (08:48)
[2020-07-26] MEDS: CLOPIDOGREL 75 MG TABLET PO SCH (08:48)
[2020-07-26] MEDS: predniSONE 5 MG TABLET PO SCH (08:48)
[2020-07-26] MEDS: ASCORBIC ACID 500 MG TABLET PO SCH ×2 (08:48→20:43)
[2020-07-26] MEDS ORDERED: ZINC SULFATE 220 MG CAPSULE PO SCH (09:00)
[2020-07-26] MEDS: SODIUM CHLORIDE 0.9% 1,000 ML IV SCH (15:34)
[2020-07-26] MEDS: ENOXAPARIN 30 MG/0.3 ML SYRINGE SUBCUT SCH (20:43)
[2020-07-26] MEDS: PREGABALIN 75 MG CAPSULE PO SCH (20:43)
[2020-07-26] MEDS: DULoxetine 30 MG CAPSULE PO SCH (20:43)
[2020-07-26] MEDS: traMADol 50 MG TABLET PO PRN (20:44)
[2020-07-26] MEDS: ASPIRIN EC 81 MG TABLET PO SCH (20:44)
[2020-07-26] MEDS: ROSUVASTATIN 10 MG TABLET PO SCH (20:44)
[2020-07-27] MEDS: SODIUM CHLORIDE 0.9% 1,000 ML IV SCH (04:20)
[2020-07-27] MEDS: MEROPENEM 500 MG in SODIUM CHLORIDE 0.9% 100 ML IV SCH (05:34)
[2020-07-27] MEDS: LEVOTHYROXINE 137 MCG TABLET PO SCH (05:35)
[2020-07-27 05:38] LABS: Basophils % 0.2 % (0.0-0.8); Eosinophils # 0.4 10*3/uL (0.0-0.87); Eosinophils % 3.3 % (0.00-10.9); Hematocrit 29.1 VOL% (35.7-47.0); Hemoglobin 8.9 GM/DL (12.0-16.0); Immature Granulocytes % 1.4 %; Immature Granulocytes Absolute 0.18 #; Lymphocytes # 2.1 10*3/uL (1.4-4.0); Lymphocytes % 16.7 % (21.3-54.2); Mean Corpuscular HGB Conc 30.6 GM/DL (32-36); Mean Corpuscular Volume 90.9 FL (87-102); Mean Platelet Volume 10.8 FL (9.6-12.0); Monocytes % 2.7 % (1.7-12.7); Neutrophils % 75.7 % (38.7-73.9); Platelet Count 228 T/CUMM (130-400); Red Cell Distribution Width 12.9 % (9.3-17.3); White Blood Count 12.8 T/CUMM (4-12)
[2020-07-27 07:28] LABS: Calcium 8.1 MG/DL (8.5-10.1); Osmolality,Calculated 279.1 MOS/KG (273-304)
[2020-07-27] MEDS: predniSONE 5 MG TABLET PO SCH (08:50)
[2020-07-27] MEDS: PANTOPRAZOLE 40 MG TABLET PO SCH (08:50)
[2020-07-27] MEDS: CLOPIDOGREL 75 MG TABLET PO SCH (08:50)
[2020-07-27] MEDS: ASCORBIC ACID 500 MG TABLET PO SCH (08:50)
[2020-07-27] MEDS: INSULIN REGULAR 100 UNIT/ML SUBCUT SCH ×2 (08:51→11:34)
[2020-07-27 11:22] VITALS: BP 151/62
== END 2020-07-27 12:20 | disposition home health service (06) | DRG 690 ==
LOC: EDUNIT# → EDBD → N.ED 16:13 → N.EDINP 20:14 → N.2E 21:48
PROVIDERS: ADMIT Internal Medicine; ATTEND Internal Medicine

== ENCOUNTER 2020-08-26 17:19 | Inpatient (IN) ==
[2020-08-26] MEDS ORDERED: cefTRIAXone 1,000 MG in SODIUM CHLORIDE 0.9% 100 ML IV STA (18:55)
[2020-08-26] MEDS ORDERED: ONDANSETRON 4 MG/2 ML VIAL IV STA (18:55)
[2020-08-26] MEDS ORDERED: SODIUM CHLORIDE 0.9% 500 ML IV STA (18:55)
[2020-08-26 19:10] LABS: Bacteria,Urine Moderate /HPF (Few); Bilirubin,Urine Negative (Negative); Blood, Urine Negative (Negative); Glucose,Urine (UA) >=500 mg/dL (Negative); Hyaline Casts,Urine 1 /LPF (0-3); Ketones,Urine Negative (Negative); Mucus,Urine Occasional /LPF (Occasional); Nitrite,Urine Negative (Negative); Protein,Urine 30 MG/DL; RBC,Urine 10 /HPF (0-4); Squamous Epithelial Cell,Urine Occasional /HPF (0-10); Urine Appearance CLOUDY (Clear); Urine Color Yellow (Yellow); Urine Specific Gravity 1.011 (1.001-1.035); Urine Urobilinogen < 2.0 EU/DL (0.2-1.0); WBC,Urine 50 /HPF (0-6)
[2020-08-26] MEDS ORDERED: MEROPENEM 500 MG in SODIUM CHLORIDE 0.9% 100 ML IV ONE (19:59)
[2020-08-26 20:06] LABS: Basophils % 0.2 % (0.0-0.8); Eosinophils # 0.5 10*3/uL (0.0-0.87); Eosinophils % 2.7 % (0.00-10.9); Hematocrit 25.7 VOL% (35.7-47.0); Hemoglobin 8.4 GM/DL (12.0-16.0); Immature Granulocytes Absolute 0.18 #; Lymphocytes # 1.4 10*3/uL (1.4-4.0); Lymphocytes % 7.5 % (21.3-54.2); Mean Corpuscular HGB Conc 32.7 GM/DL (32-36); Mean Corpuscular Volume 84.5 FL (87-102); Mean Platelet Volume 10.8 FL (9.6-12.0); Monocytes % 2.2 % (1.7-12.7); Neutrophils % 86.4 % (38.7-73.9); Platelet Count 246 T/CUMM (130-400); Red Blood Count 3.04 MC/CUMM (3.8-5.5); White Blood Count 18.5 T/CUMM (4-12)
[2020-08-26 20:33] LABS: Alanine Aminotransferase 13 U/L (13-56); Albumin 2.4 G/DL (3.4-5.0); Alkaline Phosphatase 107 U/L (45-117); Amylase 24 U/L (25-115); Aspartate Amino Transferase 12 U/L (0-37); Bilirubin,Total < 0.39 MG/DL (0.2-1.0); Blood Urea Nitrogen 38 MG/DL (7-18); Calcium 7.6 MG/DL (8.5-10.1); Estimated Glom Filtration Rate 26 ML/MIN; Glucose 424 MG/DL (74-106); Osmolality,Calculated 284.9 MOS/KG (273-304); Total Protein 6.4 G/DL (6.4-8.3)
[2020-08-26] MEDS ORDERED: INSULIN REGULAR 100 UNIT/ML SUBCUT STA (20:40)
[2020-08-26] MEDS ORDERED: GLUCAGON 1 MG VIAL IM PRN (21:56)
[2020-08-26] MEDS ORDERED: DEXTROSE 50% 25 GM/50 ML VIAL IV PRN ×2 (21:56)
[2020-08-26] MEDS ORDERED: INSULIN GLARGINE 100 UNIT/ML SUBCUT SCH (23:30)
[2020-08-26] MEDS: PREGABALIN 75 MG CAPSULE PO SCH (23:49)
[2020-08-27 04:43] LABS: % Iron Saturation 7.2 % (18-50); Ferritin 130.5 ng/ml (8-252)
[2020-08-27 06:08] LABS: Basophils % 0.2 % (0.0-0.8); Eosinophils # 1.3 10*3/uL (0.0-0.87); Eosinophils % 7.7 % (0.00-10.9); Hematocrit 29.8 VOL% (35.7-47.0); Hemoglobin 9.7 GM/DL (12.0-16.0); Immature Granulocytes % 1.4 %; Immature Granulocytes Absolute 0.23 #; Lymphocytes # 1.9 10*3/uL (1.4-4.0); Lymphocytes % 11.2 % (21.3-54.2); Mean Corpuscular HGB Conc 32.6 GM/DL (32-36); Mean Corpuscular Volume 84.7 FL (87-102); Monocytes % 2.3 % (1.7-12.7); NRBC # 0.02 10*3/uL; Neutrophils % 77.2 % (38.7-73.9); Platelet Count 288 T/CUMM (130-400); Red Blood Count 3.52 MC/CUMM (3.8-5.5); Red Cell Distribution Width 12.9 % (9.3-17.3); White Blood Count 16.7 T/CUMM (4-12)
[2020-08-27 06:27] LABS: Alanine Aminotransferase 12 U/L (13-56); Albumin 2.5 G/DL (3.4-5.0); Alkaline Phosphatase 116 U/L (45-117); Aspartate Amino Transferase 11 U/L (0-37); Bilirubin,Total < 0.39 MG/DL (0.2-1.0); Blood Urea Nitrogen 33 MG/DL (7-18); Estimated Glom Filtration Rate 32 ML/MIN; Glucose 262 MG/DL (74-106); Osmolality,Calculated 279.5 MOS/KG (273-304); Total Protein 7.1 G/DL (6.4-8.3)
[2020-08-27] MEDS: LEVOTHYROXINE 137 MCG TABLET PO SCH (07:12)
[2020-08-27] MEDS: INSULIN REGULAR 100 UNIT/ML SUBCUT SCH ×4 (07:29→21:55)
[2020-08-27] MEDS: carvediloL 12.5 MG TABLET PO SCH (11:42)
[2020-08-27] MEDS: CLOPIDOGREL 75 MG TABLET PO SCH (11:42)
[2020-08-27] MEDS: ENOXAPARIN 30 MG/0.3 ML SYRINGE SUBCUT SCH (11:43)
[2020-08-27] MEDS: PANTOPRAZOLE 40 MG TABLET PO SCH (11:43)
[2020-08-27] MEDS ORDERED: INSULIN GLARGINE 100 UNIT/ML SUBCUT SCH (14:25)
[2020-08-27] MEDS: MEROPENEM 500 MG in SODIUM CHLORIDE 0.9% 100 ML IV SCH ×2 (14:32→21:57)
[2020-08-27] MEDS: DEXAMETHASONE 4 MG/1 ML VIAL IV SCH (16:35)
[2020-08-27] MEDS: ROSUVASTATIN 10 MG TABLET PO SCH (21:57)
[2020-08-27] MEDS: PREGABALIN 75 MG CAPSULE PO SCH (21:58)
[2020-08-27] MEDS: ASPIRIN EC 81 MG TABLET PO SCH (21:58)
[2020-08-28] MEDS: LEVOTHYROXINE 137 MCG TABLET PO SCH (06:06)
[2020-08-28 06:41] LABS: Risk Ratio 6.26
[2020-08-28 08:24] LABS: Basophils % 0.2 % (0.0-0.8); Hematocrit 27.6 VOL% (35.7-47.0); Hemoglobin 9.1 GM/DL (12.0-16.0); Immature Granulocytes % 3.6 %; Lymphocytes # 1.2 10*3/uL (1.4-4.0); Lymphocytes % 14.2 % (21.3-54.2); Mean Corpuscular Volume 83.4 FL (87-102); Mean Platelet Volume 10.8 FL (9.6-12.0); Monocytes % 2.3 % (1.7-12.7); Neutrophils % 79.7 % (38.7-73.9); Platelet Count 264 T/CUMM (130-400); Red Blood Count 3.31 MC/CUMM (3.8-5.5); Red Cell Distribution Width 12.9 % (9.3-17.3); White Blood Count 8.4 T/CUMM (4-12)
[2020-08-28 08:55] LABS: Osmolality,Calculated 287.1 MOS/KG (273-304)
[2020-08-28] MEDS: ENOXAPARIN 30 MG/0.3 ML SYRINGE SUBCUT SCH (09:08)
[2020-08-28] MEDS: INSULIN REGULAR 100 UNIT/ML SUBCUT SCH ×4 (09:08→21:52)
[2020-08-28] MEDS: DEXAMETHASONE 4 MG/1 ML VIAL IV SCH (09:09)
[2020-08-28] MEDS: CLOPIDOGREL 75 MG TABLET PO SCH (09:09)
[2020-08-28] MEDS: MEROPENEM 500 MG in SODIUM CHLORIDE 0.9% 100 ML IV SCH (09:09)
[2020-08-28] MEDS: PANTOPRAZOLE 40 MG TABLET PO SCH (09:09)
[2020-08-28] MEDS: carvediloL 12.5 MG TABLET PO SCH (09:09)
[2020-08-28] MEDS ORDERED: FUROSEMIDE 40 MG/4 ML VIAL IV ONE (11:30)
[2020-08-28] MEDS: INSULIN GLARGINE 100 UNIT/ML SUBCUT SCH ×2 (12:14→21:52)
[2020-08-28] MEDS ORDERED: INSULIN REGULAR 100 UNIT/ML IV ONE (12:30)
[2020-08-28] MEDS ORDERED: SODIUM CHLORIDE 0.9% 1,000 ML IV ONE (12:31)
[2020-08-28] MEDS ORDERED: INSULIN LISPRO 100 UNIT/ML SUBCUT ONE (12:32)
[2020-08-28] MEDS: ALBUTEROL/IPRATROPIUM 3 ML NEB RESP TX SCH ×2 (12:59→19:53)
[2020-08-28] MEDS: VANCOMYCIN INJ 1,250 MG in SODIUM CHLORIDE 0.9% 250 ML IV SCH (16:54)
[2020-08-28] MEDS: CEFEPIME 1,000 MG in SODIUM CHLORIDE 0.9% 100 ML IV SCH (21:53)
[2020-08-28] MEDS: ROSUVASTATIN 10 MG TABLET PO SCH (21:54)
[2020-08-28] MEDS: ASPIRIN EC 81 MG TABLET PO SCH (21:54)
[2020-08-28] MEDS: PREGABALIN 75 MG CAPSULE PO SCH (21:54)
[2020-08-28] MEDS: SODIUM CHLORIDE 0.65% NASAL SPRAY 45 ML BOTTLE BOTH NARES SCH (22:03)
[2020-08-29] MEDS: ALBUTEROL/IPRATROPIUM 3 ML NEB RESP TX SCH ×2 (01:13→07:23)
[2020-08-29] MEDS: CEFEPIME 1,000 MG in SODIUM CHLORIDE 0.9% 100 ML IV SCH ×2 (04:07→10:07)
[2020-08-29] MEDS: VANCOMYCIN INJ 1,250 MG in SODIUM CHLORIDE 0.9% 250 ML IV SCH (05:14)
[2020-08-29 06:07] LABS: Basophils % 0.3 % (0.0-0.8); Eosinophils % 0.1 % (0.00-10.9); Hematocrit 25.3 VOL% (35.7-47.0); Hemoglobin 8.2 GM/DL (12.0-16.0); Immature Granulocytes % 3.6 %; Immature Granulocytes Absolute 0.46 #; Lymphocytes # 1.9 10*3/uL (1.4-4.0); Lymphocytes % 14.5 % (21.3-54.2); Mean Corpuscular HGB Conc 32.4 GM/DL (32-36); Mean Corpuscular Volume 84.1 FL (87-102); Mean Platelet Volume 10.6 FL (9.6-12.0); Monocytes % 3.6 % (1.7-12.7); Neutrophils % 77.9 % (38.7-73.9); Platelet Count 323 T/CUMM (130-400); Red Blood Count 3.01 MC/CUMM (3.8-5.5); White Blood Count 12.9 T/CUMM (4-12)
[2020-08-29 06:24] LABS: Calcium 7.5 MG/DL (8.5-10.1); Osmolality,Calculated 290.8 MOS/KG (273-304)
[2020-08-29] MEDS ORDERED: LEVOTHYROXINE 100 MCG TABLET PO SCH (06:30)
[2020-08-29 08:10] LABS: Ferritin 110.1 ng/ml (8-252)
[2020-08-29 08:58] LABS: Folate 8.4 NG/ML (5.4-24.0)
[2020-08-29] MEDS ORDERED: FUROSEMIDE 40 MG TABLET PO SCH (09:00)
[2020-08-29] MEDS ORDERED: FLUTICASONE 50 MCG NASAL SPRAY 16 GM BOTTLE BOTH NARES SCH (09:00)
[2020-08-29] MEDS: SODIUM CHLORIDE 0.65% NASAL SPRAY 45 ML BOTTLE BOTH NARES SCH (09:32)
[2020-08-29] MEDS: INSULIN REGULAR 100 UNIT/ML SUBCUT SCH ×2 (09:33→12:33)
[2020-08-29] MEDS: ENOXAPARIN 30 MG/0.3 ML SYRINGE SUBCUT SCH (09:33)
[2020-08-29] MEDS: CLOPIDOGREL 75 MG TABLET PO SCH (09:34)
[2020-08-29] MEDS: INSULIN GLARGINE 100 UNIT/ML SUBCUT SCH (09:34)
[2020-08-29] MEDS: PANTOPRAZOLE 40 MG TABLET PO SCH (09:34)
[2020-08-29] MEDS: carvediloL 12.5 MG TABLET PO SCH (09:35)
[2020-08-29 12:07] VITALS: BP 136/69
== END 2020-08-29 12:38 | disposition home health service (06) | DRG 291 ==
LOC: EDUNIT# → EDBD → N.EDINP 17:19 → N.ED 17:19 → N.EDINP 08-27 08:46 → N.5E 08-27 08:55
PROVIDERS: ADMIT Internal Medicine; ATTEND Internal Medicine